=== PATIENT | female | born 1965 | race Caucasian/White ===

== ENCOUNTER 2022-08-15 04:20 | Day surgery (SDC) | payer BC, OTHER ==
[2022-08-14 13:29] VITALS: BMI 31.8
[2022-08-15] MEDS ORDERED: VASOPRESSIN 20 UNITS/ML VIAL IV ONE (09:47)
[2022-08-15] MEDS ORDERED: ONDANSETRON 4 MG/2 ML VIAL IVPUSH PRN ×2 (10:11→12:16)
[2022-08-15] MEDS ORDERED: oxyCODONE HCL 5 MG TABLET PO PRN ×2 (10:11→12:16)
[2022-08-15] MEDS ORDERED: IBUPROFEN 800 MG/8 ML IJ IVPB PRN (10:11)
[2022-08-15] MEDS ORDERED: IBUPROFEN 600 MG TABLET (FP) PO PRN (10:11)
[2022-08-15] MEDS ORDERED: ELECTROLYTE-148 SOLN 1,000 ML IV SCH (10:15)
[2022-08-15] MEDS ORDERED: MIDAZOLAM HCL 2 MG/2 ML SINGLE DOSE VIAL ONE (10:17)
[2022-08-15] MEDS ORDERED: FENTANYL CITRATE/PF 50 MCG/ML VIAL ONE ×5 (10:17→14:13)
[2022-08-15] MEDS ORDERED: PROPOFOL 20 ML ONE (10:17)
[2022-08-15] MEDS ORDERED: KETOROLAC TROMETHAMINE 30 MG/1 ML VIAL ONE (10:33)
[2022-08-15] MEDS ORDERED: DEXAMETHASONE SOD PHOSPHATE 4 MG/1 ML VIAL ONE (10:33)
[2022-08-15] MEDS ORDERED: FUROSEMIDE 40 MG/4 ML INJECTABLE VIAL ONE (11:45)
[2022-08-15] MEDS ORDERED: FUROSEMIDE 10 MG/1 ML VIAL (4 ML VIAL) IVPUSH ONE (11:55)
[2022-08-15 12:08] LABS: BASO % 0.4 % (0-2.0); EOS % 1.6 % (0-4.5); HEMATOCRIT 30.8 % (32.4-45.2); LYMPH % 49.9 % (8-40); MCHC 32.6 g/dl (32.0-36.0); MEAN PLT VOLUME 8.8 fl (7.5-11.1); MONO % 16.5 % (3.8-10.2); NEUT % 31.6 % (42.8-82.8); PLATELET COUNT 46 10^3/uL (134-434); RBC 3.45 M/mm3 (3.60-5.2); WHITE BLOOD COUNT 3.7 K/mm3 (4.0-10.0)
[2022-08-15] MEDS ORDERED: FENTANYL CITRATE/PF 50 MCG/ML VIAL IVPUSH PRN (12:16)
[2022-08-15] MEDS ORDERED: ACETAMINOPHEN 1000 MG/100 ML BAG IVPB ONE (12:17)
[2022-08-15 12:38] LABS: ALBUMIN 2.8 g/dl (3.4-5.0); BLOOD UREA NITROGEN 18.4 mg/dL (7-18)
[2022-08-15 12:41] LABS: CREATININE 0.5 mg/dL (0.55-1.3)
[2022-08-15 12:42] LABS: TOT PROT 5.3 g/dl (6.4-8.2)
[2022-08-15 12:44] LABS: BILIRUBIN,TOTAL 0.2 mg/dL (0.2-1)
[2022-08-15] MEDS: FENTANYL CITRATE/PF 50 MCG/ML VIAL IVPUSH PRN ×3 (13:18→14:17)
[2022-08-15 15:26] LABS: HEMOGLOBIN 11.9 GM/dL (10.7-15.3); MCH 28.4 pg (25.7-33.7); MCHC 32.1 g/dl (32.0-36.0); MEAN CELL VOLUME 88.5 fl (80-96); MEAN PLT VOLUME 9.1 fl (7.5-11.1); PLATELET COUNT 57 10^3/uL (134-434); RBC 4.18 M/mm3 (3.60-5.2); RDW 15.6 % (11.6-15.6); WHITE BLOOD COUNT 8.3 K/mm3 (4.0-10.0)
[2022-08-15 15:53] LABS: CALCIUM 7.7 mg/dL (8.5-10.1)
[2022-08-15 15:54] LABS: BLOOD UREA NITROGEN 16.7 mg/dL (7-18)
[2022-08-15 15:57] LABS: CREATININE 0.7 mg/dL (0.55-1.3)
[2022-08-15 15:58] LABS: BILIRUBIN,TOTAL 0.3 mg/dL (0.2-1)
[2022-08-15 15:59] LABS: ALBUMIN 3.7 g/dl (3.4-5.0)
[2022-08-15 17:28] LABS: ALBUMIN 3.6 g/dl (3.4-5.0)
[2022-08-15 17:31] LABS: BILIRUBIN,DIRECT 0.1 mg/dL (0.0-0.2)
[2022-08-15 17:33] LABS: BILIRUBIN,TOTAL 0.4 mg/dL (0.2-1); TOT PROT 6.9 g/dl (6.4-8.2)
[2022-08-15 18:36] VITALS: RESP 18
[2022-08-15 18:48] VITALS: BP 127/80; PULSE 75; TEMP 97.9
== END 2022-08-15 18:40 | disposition home or self-care (01) ==
LOC: JASU-SURG 04:20
PROVIDERS: ATTEND Obstetrics & Gynecology
PROC: 0UB98ZZ Excision of Uterus, Via Natural or Artificial Opening Endoscopic (ICD-10-PCS; principal; 2022-08-15 09:30)
DX: D25.0 Submucous leiomyoma of uterus (principal); N92.0 Excessive and frequent menstruation with regular cycle
CPT/HCPCS: 36415; 71045-TC-FY; 76705-TC; 80053; 80076; 81025; 85025; 85027; 88305-TC; 94760